=== PATIENT | female | born 1990 | race African-American/Black ===

== ENCOUNTER 2018-04-25 15:52 | Inpatient (IN) | payer OTHER ==
[~2018-04-25] VITALS: Ht 167.6 cm; Wt 80.3 kg
--- NOTE | ~2018-04-25 | H ---
[facility] [place] [address] HISTORY AND PHYSICAL Name: [facility] VELAZQUE[facility] Room #: 170-16 ADM IN M.R.#: [id number] Admission: 04/25/18 Attend Phys: Karrie Penny MD Discharge: Date of : 89 Report #: [id number] THIS REPORT FOR: //name// CC: Karrie Penny [facility] unknown DATE OF SERVICE: 04/25/2018 REASON FOR PRESENTATION: Nausea, vomiting, abdominal pain. HISTORY OF PRESENT ILLNESS: A 27-year-old who came to the Emergency Room reporting that she had some nausea and vomiting with abdominal pain, started yesterday. The patient's history dates back to 2 days ago when she had cold sores and was prescribed acyclovir by an urgent care. She also had dinner in a restaurant 2 nights ago. Yesterday, she started to have some nausea, severe abdominal pain located in the periumbilical area. This was associated with repeated vomiting, no diarrhea. No fever or chills. No known previous kidney problems. No urinary symptoms. No nonsteroidal anti-inflammatory medication usage. She presented to the Emergency Room and was found to be in acute kidney injury and will be admitted for further evaluation and management. PAST MEDICAL AND SURGICAL HISTORY: 1. Anemia. 2. D and C. MEDICATIONS: Acyclovir. ALLERGIES: None. FAMILY HISTORY: No chronic medical issues in the family. SOCIAL HISTORY: Occasional use of alcohol. No drug or abuse. She is a senior data mining analyst. REVIEW OF SYSTEMS: GENERAL: No fever or chills. CARDIOVASCULAR: No chest pain or palpitation. PULMONARY: No cough or hemoptysis. GASTROINTESTINAL: As per history of present illness. GENITOURINARY: No frequency, no urgency, no decreased urine output. SKIN: Oral cold blisters. PHYSICAL EXAMINATION: GENERAL: Alert and oriented, in no apparent distress. VITAL SIGNS: Blood pressure is 132/69, pulse is 74, respiratory rate 16. HEAD AND NECK: No jugular venous distention, no bruit, no thyromegaly. [facility] [address] [place] [address] HISTORY AND PHYSICAL Name: [facility] Room #: 170-16 ADM IN ..#: [id number] Admission: 04/25/18 Attend Phys: Karrie Penny MD Discharge: Date of : 89 Report #: [id number] Evidence of oral blisters and herpes labialis. CARDIOVASCULAR: Regular with no rub detected. CHEST: No crackles. ABDOMEN: Soft, nontender with no hepatosplenomegaly. LOWER EXTREMITIES: No edema with intact peripheral pulses. LABORATORY DATA: Reviewed. Only abnormality is a BUN of 37 and potassium of 3.4 with a creatinine of 4.3. Urine with +1 protein, some white blood cells. ASSESSMENT, IMPRESSION AND PLAN: 1. Acute kidney injury. 2. Recent herpes simplex. 3. Acute kidney injury could be related to her either gastrointestinal illness versus the acyclovir. I will initiate the appropriate workup. 4. IV fluid. 5. Ultrasound of the kidneys. 6. Urine electrolytes. 7. If needed, we will send serology. 8. Discontinue acyclovir. By: [id number] Karrie Penny MD /nt
[~2018-04-25 15:52] MED LIST: COLACE 100 MG100 MG PO; DARVOCET-N 1001 EAC1 PO; FAMCYCLOVIR 50500 M1 PO; FOLIC ACID0.8 MG PO; INTEGRA; NOHOMEMEDICATIONS; NORCO 5-325 TA1 EACH PO; OGESTREL1 EACH PO; SEASONIQUE; TYLENOL P.M. E1 EAC3 PO
[2018-04-25 16:33] VITALS: BP 133/86
[2018-04-25 17:00] LABS: URINE BILIRUBIN NEGATIVE (Negative); URINE BLOOD 1+ (Negative); URINE CLARITY CLEAR; URINE COLOR YELLOW; URINE GLUCOSE-RANDOM* NEGATIVE (Negative); URINE KETONES NEGATIVE (Negative); URINE LEUKOCYTES NEGATIVE (Negative); URINE NITRITE NEGATIVE (Negative); URINE PROTEIN (DIPSTICK) 1+ (Negative); URINE UROBILINOGEN 0.2 E.U./dl (0.2-1.0)
[2018-04-25 17:05] LABS: ABSOLUTE NEUTROPHILS 7.5 thou/uL (1.4-8.2); BASOPHILS 0.3 % (0.0-2.0); EOSINOPHILS 0.1 % (0.0-3.0); HEMATOCRIT 38.6 % (37.0-47.0); HEMOGLOBIN 12.7 gm/dL (12.0-15.0); LYMPHOCYTES 13.9 % (24.0-44.0); MCH 26.8 pg (26.0-34.0); MCV 81.4 fL (80.0-100.0); PLATELET COUNT 260 thou/uL (150-400); POLYS 75.7 % (36.0-66.0); RBC 4.74 mil/uL (4.20-5.00); RDW 15.6 % (10.5-14.5); WBC 9.9 thou/uL (4.0-11.0)
[2018-04-25 17:08] LABS: SQUAMOUS 0-3 Few /LPF (0-3); URINE RBC 3-10 Few /HPF (0-2); URINE WBC 6-15 Few /HPF (0-5)
[2018-04-25 17:09] LABS: BACTERIA 1-9 Few /HPF (None Seen); CASTS None Seen /LPF (None Seen); CRYSTALS None Seen /LPF (None Seen)
[2018-04-25 17:23] LABS: CALCIUM 9.6 mg/dL (8.5-10.1); CREATININE 4.3 mg/dL (0.6-1.0); POTASSIUM 3.4 mmol/L (3.5-5.1)
[2018-04-25 18:49] VITALS: BP 135/75
[2018-04-25 20:30] VITALS: BP 127/52
[2018-04-26 04:30] VITALS: BP 115/69
[2018-04-26 06:07] LABS: ALBUMIN 3.3 g/dL (3.4-5.0); CALCIUM 8.5 mg/dL (8.5-10.1); PHOSPHORUS 5.1 mg/dL (2.5-4.9); POTASSIUM 3.7 mmol/L (3.5-5.1)
[2018-04-26 08:22] VITALS: BP 127/83
[2018-04-26 21:53] VITALS: BP 131/90
[2018-04-27 06:02] LABS: CALCIUM 8.5 mg/dL (8.5-10.1); CREATININE 2.2 mg/dL (0.6-1.0); PHOSPHORUS 4.4 mg/dL (2.5-4.9); POTASSIUM 3.7 mmol/L (3.5-5.1)
[2018-04-27 06:06] VITALS: BP 135/83
[2018-04-27 07:13] VITALS: BP 136/73
[2018-04-27 13:09] LABS: COMPLEMENT-C3 137 mg/dL (82-167); COMPLEMENT-C4 24 mg/dL (14-44)
[2018-04-27 16:57] VITALS: BP 148/80
[2018-04-27 21:38] VITALS: BP 133/80
[2018-04-28 07:23] VITALS: BP 139/81
[2018-04-28 11:52] LABS: CALCIUM 8.9 mg/dL (8.5-10.1); POTASSIUM 3.5 mmol/L (3.5-5.1)
[2018-04-28 11:53] LABS: CREATININE 1.2 mg/dL (0.6-1.0)
[2018-04-28 15:39] VITALS: BP 139/81
[2018-04-29 11:09] LABS: ANA INTERPRETATION Negative (Negative)
== END 2018-04-28 16:10 | disposition home or self-care (01) | DRG 682 ==
LOC: ER 15:52 → 4E 17:55 → EROBS 17:55 → 4E 19:06
PROVIDERS: Hospitalist; Physician Assistant
DX: N17.9 Acute kidney failure, unspecified (principal); E43 Unspecified severe protein-calorie malnutrition; B00.1 Herpesviral vesicular dermatitis; Z79.899 Other long term (current) drug therapy; Z68.28 Body mass index [BMI] 28.0-28.9, adult
CPT/HCPCS: 10084